=== PATIENT | male | born 1980 | race Caucasian/White ===

== ENCOUNTER → 2019-12-30 | Outpatient (CLI) | payer OTHER | END | disposition home or self-care (01) | LOC: TOM 12-29 07:10 | PROVIDERS: ATTEND Colon & Rectal Surgery | DX: R10.13 Epigastric pain (principal); R10.30 Lower abdominal pain, unspecified ==

== ENCOUNTER 2022-03-21 11:31 | Outpatient (CLI) | payer OTHER | END 2022-03-21 11:32 | disposition home or self-care (01) | LOC: LAB 11:31 | PROVIDERS: ATTEND Obstetrics & Gynecology | DX: Z20.828 Contact with and (suspected) exposure to other viral communicable diseases (principal); Z20.818 Contact with and (suspected) exposure to other bacterial communicable diseases ==